=== PATIENT | female | born 1970 | race Hispanic/Latino ===

== ENCOUNTER 2018-08-10 13:17 | Emergency (ER) | payer OTHER ==
[2018-08-10 14:18] LABS: APPEARANCE,URINE Clear (CLEAR); BILIRUBIN,URINE Negative (NEGATIVE); COLOR,URINE Yellow (YELLOW); GLUCOSE, URINE (UA) Negative (NEGATIVE); KETONES,URINE Negative (NEGATIVE); LEUKOCYTE ESTERASE ,URINE Negative (NEGATIVE); NITRATE,URINE Negative (NEGATIVE); OCCULT BLOOD,URINE Negative (NEGATIVE); PH,URINE 6.5 (5.0-8.0); PROTEIN,URINE Negative (NEGATIVE); UROBILINOGEN,URINE 0.2 mg/dL (0.2-1.0)
[2018-08-10 14:21] LABS: BASOPHILS % (AUTO) 0.7 % (0.0-5.0); HEMATOCRIT 31.5 % (36-48); LYMPHOCYTES % (AUTO) 29.1 % (21.0-51.0); MEAN CORPUSCULAR HEMOGLOBIN 27.1 pg (27.0-33.0); MEAN CORPUSCULAR HGB CONC 33.4 g/dL (32.0-36.0); MEAN CORPUSCULAR VOLUME 81.1 fL (79-99); MONOCYTES % (AUTO) 8.8 % (3.0-13.0); NEUTROPHILS % (AUTO) 60.4 % (40.0-77.0); PLATELET COUNT (AUTO) 300 K/uL (130-400); RED BLOOD CELL COUNT(AUTO) 3.88 MIL/uL (4.00-5.50); RED CELL DISTRIBUTION WIDTH 17.6 % (11.0-15.5); WHITE BLOOD COUNT (AUTO) 7.4 K/uL (4.8-10.8)
[2018-08-10 14:30] LABS: CREATININE 0.6 mg/dL (0.5-1.5); POTASSIUM 3.8 mmol/L (3.5-5.1)
[2018-08-10 14:35] LABS: ALBUMIN 3.3 g/dL (3.5-5.0); BILIRUBIN,TOTAL 0.3 mg/dL (0.2-1.0); TOTAL PROTEIN, SERUM 7.2 g/dL (6.0-8.3)
[2018-08-10] MEDS ORDERED: DiphenhydrAMINE HCL 50 MG/ML VIAL ONE (15:10)
[2018-08-10] MEDS ORDERED: KETOROLAC TROMETHAMINE 30MG/ML ONE (15:10)
== END 2018-08-10 15:58 | disposition home or self-care (01) ==
LOC: EDH 13:17
DX: L29.9 Pruritus, unspecified (principal); R42 Dizziness and giddiness; M79.18 Myalgia, other site; M25.50 Pain in unspecified joint; Z72.0 Tobacco use
CPT/HCPCS: 36415; 80053; 81003; 84484; 85025; 93005; 96374; 96375; 99285; J1200; J1885

== ENCOUNTER 2021-01-16 17:42 | Emergency (ER) | payer SELFPAY ==
[2021-01-16] MEDS ORDERED: ACETAMINOPHEN-CODEINE 300/30MG TAB ONE (18:14)
== END 2021-01-16 18:51 | disposition home or self-care (01) ==
LOC: EDH 17:42
DX: J06.9 Acute upper respiratory infection, unspecified (principal); Z98.890 Other specified postprocedural states; Z72.0 Tobacco use
CPT/HCPCS: 71045

== ENCOUNTER 2021-02-24 12:08 | Emergency (ER) | payer SELFPAY ==
[2021-02-24] MEDS ORDERED: CEPHALEXIN 500 MG CAPSULE ONE (13:30)
[2021-02-24] MEDS ORDERED: ACETAMINOPHEN EXTRA STRENGTH 500 MG TABLET ONE (13:31)
[2021-02-24] MEDS ORDERED: TETANUS/DIPHTHERIA TOXOID [ADULT] 0.5 ML VIAL IM ONE (13:31)
== END 2021-02-24 14:22 | disposition home or self-care (01) ==
LOC: EDH 12:08
DX: S61.215A Laceration without foreign body of left ring finger without damage to nail, initial encounter (principal); Z98.890 Other specified postprocedural states; Z72.0 Tobacco use; W26.0XXA Contact with knife, initial encounter; Y93.G3 Activity, cooking and baking; Y92.090 Kitchen in other non-institutional residence as the place of occurrence of the external cause; Y99.8 Other external cause status
CPT/HCPCS: 73140; 90471; 90714

== ENCOUNTER 2022-05-03 10:03 | Emergency (ER) | payer OTHER ==
[~2022-05-03] VITALS: Ht 154.9 cm; Wt 81.6 kg
[2022-05-03] MEDS ORDERED: KETOROLAC 60 MG VIAL (30MG/ML) IM ONE (10:30)
[2022-05-03] MEDS ORDERED: NAPR500T6 PO (11:10)
[2022-05-03 11:33] VITALS: BP 133/78
== END 2022-05-03 11:57 | disposition home or self-care (01) ==
LOC: EDH 10:03
DX: M41.86 Other forms of scoliosis, lumbar region (principal)
CPT/HCPCS: 72100; 96372; 99283; J1885

== ENCOUNTER 2022-05-10 21:39 | Emergency (ER) | payer OTHER ==
[~2022-05-10] VITALS: Ht 157.5 cm; Wt 79.8 kg
[~2022-05-10 21:39] MED LIST: NAPR500T6 PO
[2022-05-10 23:16] LABS: BASOPHILS % (AUTO) 0.4 % (0.0-5.0); EOSINOPHILS % (AUTO) 2.4 % (0.0-8.0); HEMATOCRIT 37.3 % (36-48); LYMPHOCYTES % (AUTO) 20.3 % (21.0-51.0); MEAN CORPUSCULAR HEMOGLOBIN 31.9 pg (27.0-33.0); MEAN CORPUSCULAR HGB CONC 34.6 g/dL (32.0-36.0); MEAN CORPUSCULAR VOLUME 92.1 fL (79-99); MONOCYTES % (AUTO) 13.6 % (3.0-13.0); NEUTROPHILS % (AUTO) 62.9 % (40.0-77.0); PLATELET COUNT (AUTO) 205 K/uL (130-400); RED BLOOD CELL COUNT(AUTO) 4.05 MIL/uL (4.00-5.50); RED CELL DISTRIBUTION WIDTH 12.9 % (11.0-15.5); WHITE BLOOD COUNT (AUTO) 5.3 K/uL (4.8-10.8)
[2022-05-10 23:26] LABS: CREATININE 0.7 mg/dL (0.5-1.5); POTASSIUM 3.4 mmol/L (3.5-5.1)
[2022-05-10 23:31] LABS: ALBUMIN 3.6 g/dL (3.5-5.0); BILIRUBIN,TOTAL 0.4 mg/dL (0.2-1.0); TOTAL PROTEIN, SERUM 7.1 g/dL (6.0-8.3)
[2022-05-10] MEDS ORDERED: ONDANSETRON 4MG INJ ONE (23:38)
[2022-05-10] MEDS ORDERED: KETOROLAC 30MG VIAL (30MG/ML) ONE (23:38)
[2022-05-11] MEDS ORDERED: KETOROLAC 30MG VIAL (30MG/ML) IVP ONE
[2022-05-11] MEDS ORDERED: ONDANSETRON 4MG INJ IVP ONE
[2022-05-11] MEDS ORDERED: FIORIT PO (01:07)
[2022-05-11 01:29] VITALS: BP 118/76
== END 2022-05-11 01:31 | disposition home or self-care (01) ==
LOC: EDH 21:39
DX: G43.909 Migraine, unspecified, not intractable, without status migrainosus (principal)
CPT/HCPCS: 36415; 80053; 82150; 85025; 96374; 96375; 99284; J1885; J2405

== ENCOUNTER 2023-02-18 16:37 | Emergency (ER) | payer OTHER ==
[~2023-02-18] VITALS: Ht 160 cm; Wt 85.3 kg
[~2023-02-18 16:37] MED LIST changes: +FIORIT PO
[2023-02-18 17:45] VITALS: BP 112/45
== END 2023-02-18 19:55 | disposition left against medical advice (07) ==
LOC: EDH 16:37
DX: M79.672 Pain in left foot (principal); Z53.21 Procedure and treatment not carried out due to patient leaving prior to being seen by health care provider
CPT/HCPCS: 99281

== ENCOUNTER 2023-07-16 07:43 | Emergency (ER) | payer OTHER ==
[~2023-07-16] VITALS: Ht 160 cm; Wt 85.7 kg
[2023-07-16 07:45] VITALS: BP 123/78; PULSE 69; RESP 16
[2023-07-16] MEDS ORDERED: SOLU-MEDROL 125MG VIAL IM ONE (09:00)
[2023-07-16] MEDS ORDERED: KETOROLAC 60 MG VIAL (30MG/ML) IM ONE (09:00)
[2023-07-16] MEDS ORDERED: MELO-106 PO (10:03)
== END 2023-07-16 10:19 | disposition home or self-care (01) ==
LOC: EDH 07:43
DX: S89.81XA Other specified injuries of right lower leg, initial encounter (principal); Z79.899 Other long term (current) drug therapy; X58.XXXA Exposure to other specified factors, initial encounter; Y93.89 Activity, other specified; Y92.89 Other specified places as the place of occurrence of the external cause; Y99.8 Other external cause status
CPT/HCPCS: 99284; 29505; 73560; 96372 ×2; J2930; J1885

== ENCOUNTER 2023-10-03 15:56 | Emergency (ER) | payer OTHER ==
[~2023-10-03] VITALS: Ht 157.5 cm; Wt 82.6 kg
[~2023-10-03 15:56] MED LIST changes: +MELO-106 PO
[2023-10-03 17:07] LABS: RAPID GROUP A STREP negative (NEGATIVE)
[2023-10-03 17:11] LABS: SARS-CoV-2, RNA, NAAT NEGATIVE SARS CoV-2 (NEGATIVE)
[2023-10-03 17:19] LABS: INFLUENZA TYPE A Negative For Type A (NEGATIVE); INFLUENZA TYPE B Negative For Type B (NEGATIVE)
[2023-10-03 18:28] VITALS: BP 128/69; PULSE 70; RESP 16; O2SAT 99
[2023-10-03 19:02] LABS: APPEARANCE,URINE CLEAR (CLEAR); BILIRUBIN,URINE NEGATIVE (NEGATIVE); COLOR,URINE COLORLESS (YELLOW); GLUCOSE, URINE (UA) NEGATIVE (NEGATIVE); KETONES,URINE NEGATIVE (NEGATIVE); LEUKOCYTE ESTERASE ,URINE NEGATIVE Leu/uL (NEGATIVE); NITRATE,URINE NEGATIVE (NEGATIVE); OCCULT BLOOD,URINE NEGATIVE (NEGATIVE); PROTEIN,URINE NEGATIVE (NEGATIVE); UROBILINOGEN,URINE 0.2 mg/dL (0.2-1.0)
[2023-10-03 19:21] LABS: ADD UA MICROSCOPIC NO
== END 2023-10-03 20:04 | disposition left against medical advice (07) ==
LOC: EDH 15:56
DX: R50.9 Fever, unspecified (principal); M79.10 Myalgia, unspecified site; R11.2 Nausea with vomiting, unspecified; Z79.899 Other long term (current) drug therapy; Z98.890 Other specified postprocedural states
CPT/HCPCS: 99283; 87635; 87880; 87804 ×2; 81003; C9803

== ENCOUNTER 2024-02-29 13:25 | Emergency (ER) | payer OTHER ==
[~2024-02-29] VITALS: Ht 160 cm; Wt 84.4 kg
[2024-02-29 14:10] LABS: BILIRUBIN,URINE NEGATIVE (NEGATIVE); COLOR,URINE YELLOW (YELLOW); GLUCOSE, URINE (UA) NEGATIVE (NEGATIVE); KETONES,URINE NEGATIVE (NEGATIVE); LEUKOCYTE ESTERASE ,URINE 75 Leu/uL (NEGATIVE); NITRATE,URINE NEGATIVE (NEGATIVE); OCCULT BLOOD,URINE NEGATIVE (NEGATIVE); PH,URINE 7.5 (5.0-8.0); PROTEIN,URINE 20 mg/dL (NEGATIVE)
[2024-02-29 14:11] LABS: ADD UA MICROSCOPIC YES; APPEARANCE,URINE HAZY (CLEAR)
[2024-02-29 14:18] LABS: BASOPHILS # (AUTO) 0.03 K/uL (0.00-0.20); BASOPHILS % (AUTO) 0.5 % (0.0-5.0); EOSINOPHILS # (AUTO) 0.23 K/uL (0.00-0.70); EOSINOPHILS % (AUTO) 3.9 % (0.0-8.0); HEMATOCRIT 38.7 % (36-48); IMMATURE GRANULOCYTE ABSOLUTE 0.02 K/uL (0-1); LYMPHOCYTES # (AUTO) 2.3 K/uL (1.0-4.8); LYMPHOCYTES % (AUTO) 38.4 % (21.0-51.0); MEAN CORPUSCULAR HEMOGLOBIN 32.4 pg (27.0-33.0); MEAN CORPUSCULAR HGB CONC 34.6 g/dL (32.0-36.0); MEAN CORPUSCULAR VOLUME 93.5 fL (79-99); MONOCYTES # (AUTO) 0.5 K/uL (0.1-1.0); MONOCYTES % (AUTO) 7.8 % (3.0-13.0); NEUTROPHILS # (AUTO) 2.9 K/uL (1.8-7.7); NEUTROPHILS % (AUTO) 49.1 % (40.0-77.0); PLATELET COUNT (AUTO) 273 K/uL (130-400); RED BLOOD CELL COUNT(AUTO) 4.14 MIL/uL (4.00-5.50); RED CELL DISTRIBUTION WIDTH 13.4 % (11.0-15.5); WHITE BLOOD COUNT (AUTO) 5.9 K/uL (4.8-10.8)
[2024-02-29 14:25] LABS: BACTERIA,URINE FEW /HPF (None Seen); MUCUS,URINE RARE LPF (None Seen); SQUAMOUS EPITHELIAL CELL,UR MANY /HPF (0-2)
[2024-02-29 14:33] LABS: CREATININE 0.8 mg/dL (0.5-1.0); POTASSIUM 3.6 mmol/L (3.5-5.1)
[2024-02-29 14:38] LABS: ALBUMIN 3.4 g/dL (3.5-5.0); BILIRUBIN,TOTAL 0.5 mg/dL (0.2-1.0); TOTAL PROTEIN, SERUM 7.1 g/dL (6.0-8.3)
[2024-02-29] MEDS: 0.9%NACL 1000ML 1,000 ML IV ONE (15:35)
[2024-02-29] MEDS: KETOROLAC 30MG VIAL (30MG/ML) IVP ONE (15:35)
[2024-02-29] MEDS ORDERED: AMOX1TAB16 PO (16:29)
[2024-02-29] MEDS ORDERED: IBUP-2077 PO (16:29)
[2024-02-29 17:13] VITALS: BP 136/78; PULSE 75; RESP 18; O2SAT 98
== END 2024-02-29 17:14 | disposition home or self-care (01) ==
LOC: EDH 13:25
DX: N30.01 Acute cystitis with hematuria (principal); K59.00 Constipation, unspecified; Z79.899 Other long term (current) drug therapy; Z98.890 Other specified postprocedural states
CPT/HCPCS: 99285; 74176; 96374; 96361; 80053; 85025; 87088; 81001; 36415; J7030; J1885

== ENCOUNTER 2025-06-18 11:42 | Emergency (ER) | payer SELFPAY ==
[~2025-06-18] VITALS: Ht 157.5 cm; Wt 79.9 kg
[~2025-06-18 11:42] MED LIST changes: +AMOX1TAB16 PO; +IBUP-2077 PO; +NAPR-1506 PO; -NAPR500T6 PO
[2025-06-18 11:44] VITALS: TEMP 97.5
--- NOTE | 2025-06-18 11:54 | ERN ---
ED Note History of Present Illness Stated Complaint: RIGHT SHOULDER PAIN Chief Complaint: Shoulder Injury/Pain Time Seen by MD: 11:45 Dictation: PATIENT IS A 55-YEAR-OLD FEMALE COMING IN TODAY WITH POSTERIOR RIGHT SHOULDER PAIN, NON TRAUMA ONSET YESTERDAY. SHE STATES SHE WORKS FOR A LOCAL [employer], USES HER ARMS EXTENSIVELY. SHE DENIES ANY TRAUMA NO FALLS NO PRIOR SURGERIES TO SHOULDER. STATES WHEN SHE WOKE UP THIS MORNING IN HIS WORSE, NO PRIMARY CARE DOCTOR. DECREASED RANGE OF MOTION SECONDARY TO PAIN. SHE TOOK TYLENOL YESTERDAY WITH LITTLE HELP Allergies: Coded Allergies: No Known Drug Allergies (Unverified Allergy, Unknown, 05/03/22) Home Meds Active Scripts Ibuprofen (Ibuprofen 800 mg Tab) 800 Mg Tab, 800 MG PO Q6H PRN for PAIN, #30 TAB Prov:SONIA PEARSON NP 02/29/24 Amoxicillin/Potassium Clav (Amox Tr-K Clv 875-125 mg Tab) 875 Mg-125 Mg Tablet, 1 EACH PO BID for 7 Days, #14 TAB 0 Refills Prov:SONIA PEARSON NP 02/29/24 Meloxicam (Meloxicam) 7.5 Mg Tablet, 7.5 MG PO DAILY, #30 TAB 2 Refills Prov:FE MAJOR Sr., MD 07/16/23 Butalb/Acetaminophen/Caffeine (Fioricet) 1 Tab Tab, 1 TAB PO QID, #20 TAB Prov:RAYMOND KINNEY MD 05/11/22 Naproxen (Naproxen) 500 Mg Tablet.dr, 500 MG PO BID for 7 Days, #14 TAB Prov:KAMRAN BERMEO MD 05/03/22 Past Medical History Past Medical History: No Pertinent History Surgical History: Social History: Negative, Lives with family History: Not Applicable RN Note Reviewed/Agreed w/PFSH: Yes Review of System Dictation CONSTITUTIONAL: NEGATIVE EXCEPT FOR HPI HEAD/FACE: NEGATIVE EXCEPT FOR HPI EENT: NEGATIVE EXCEPT FOR HPI RESPIRATORY: NEGATIVE EXCEPT FOR HPI GASTROINTESTINAL/ABDOMINAL: NEGATIVE EXCEPT FOR HPI GENITOURINARY: NEGATIVE EXCEPT FOR HPI MUSCULOSKELETAL: NEGATIVE EXCEPT FOR HPI RIGHT POSTERIOR SHOULDER PAIN INTEGUMENTARY: NEGATIVE EXCEPT FOR HPI NEUROLOGICAL/PSYCH: NEGATIVE EXCEPT FOR HPI HEMATOLOGIC/LYMPHATIC: NEGATIVE EXCEPT FOR HPI ALL SYSTEMS NEGATIVE, EXCEPT NOTED ABOVE. 13 POINT REVIEW OF SYSTEMS ASSESSED AND ALL NEGATIVE EXCEPT FOR ABOVE. Initial Vital Sign VS Vital Signs Date Time Temp Pulse Resp B/P (MAP) Pulse Ox O2 Delivery O2 Flow Rate FiO2 06/18/25 11:44 97.5 65 19 130/90 98 Room Air 0 Physical Exam Dictation VITAL SIGNS REVIEWED GENERAL APPEARANCE: ALERT, ORIENTED X 3, MODERATE ACUTE DISTRESS, WELL DEVELOPED, NOURISHED. HEAD AND FACE: NON-TRAUMATIC. EYES: PERRL, PINK CONJUNCTIVAS, EYELID NO TRAUMA, ANTERIOR CHAMBER WITH ARCUS SENILIS. EARS: PINNAS INTACT AND NO SIGNS OF TRAUMA OR ERYTHEMA EAR CANALS CLEAR AND NO DISCHARGE TM NO ERYTHEMA NOSE: NO DISCHARGE, NO BLEEDING. OROPHARYNX: MOUTH NORMAL, TONGUE PINK, PHARYNX CLEAR,NO ERYTHEMA, TONSILS NO EXUDATES, NO ABSCESSES NOTED, MUCOUS MEMBRANE MOIST NECK: SUPPLE, NON-TENDER, NO THYROMEGALY, NO MASSES, NO JVD, NO BRUITS BREAST:DEFERRED CHEST:NO TENDERNESS, NO CREPITUS, NO PARADOXICAL MOVEMENT, NO RETRACTIONS LUNGS:CLEAR, WELL-VENTILATED, SYMMETRIC, NO RALES, NO WHEEZING, NO RHONCHI, NO STRIDOR, GOOD BREATH SOUNDS BILATERALLY HEART: REGULAR RATE, REGULAR RHYTHM, NO MURMUR, NO GALLOPS VASCULAR: NO PERIPHERAL EDEMA, ABDOMEN: SOFT, POSITIVE BOWEL SOUNDS, NONDISTENDED, NO GUARDING, NONTENDER, NO REBOUND, NO MASSES NO HEPATOMEGALY, NO SPLENOMEGALY, NO TOLEDO'S SIGN, NO HERNIAS. RECTAL: DEFERRED GENITAL: DEFERRED NEUROLOGICAL: NORMAL SPEECH, MOTOR FUNCTION INTACT, SENSORY FUNCTION INTACT MUSCULOSKELETAL: NECK NONTENDER, FULL RANGE OF MOTION, BACK NONTENDER, FULL RANGE OF MOTION, EXTREMITIES: TENDERNESS WITH DECREASED RANGE OF MOTION TO RIGHT POSTERIOR SHOULDER. PATIENT NEAR THE SCAPHOID PROCESS. SKIN INTACT NO LESIONS SKIN: COLOR PINK, DRY, NO TURGOR, NO RASH, NO LACERATIONS, NO ABRASIONS, NO CONTUSIONS. LYMPHATIC: DEFERRED Results (Laboratory/Radiology) Laboratory/Radiology RIGHT SHOULDER X-RAY NO FRACTURE DISLOCATION Labs Reviewed?: Yes ED Course ED Course Orders Procedure Category Date Status Time Shoulder Comp 2+Vws Rt RAD 06/18/25 Resulted 11:48 Ibuprofen 800 Mg Tab PHA 06/18/25 Complete (Motrin) 12:00 Dexamethasone 4mg/Ml PHA 06/18/25 Complete 1ml Vial (Dexametha 12:00 Current Medications Medications (Trade) Dose Ordered Sig/Lissette Route PRN Reason Start Time Stop Time Status Last Admin Dose Admin Dexamethasone Sodium Phosphate (dexaMETHasone 4MG/ML 1ML VIAL) 8 mg ONCE ONCE IM 06/18/25 12:00 06/18/25 12:01 DC Ibuprofen (moTRIN) 800 mg ONCE ONCE PO 06/18/25 12:00 06/18/25 12:01 DC Vital Signs Date Time Temp Pulse Resp B/P (MAP) Pulse Ox O2 Delivery O2 Flow Rate FiO2 06/18/25 11:44 97.5 65 19 130/90 98 Room Air 0 Medical Decision Making [facility] 1220/MEDICAL DECISION-MAKING BASED ON X-RAY OF RIGHT SHOULDER FOR NON TRAUMA PAIN PAIN MANAGED WITH TORADOL IM DISCHARGED HOME WITH IBUPROFEN AND FOLLOW UP WITH DR. BAILEY DX & DISP Disposition: Discharge Departure Impression: Primary Impression: Strain of right levator scapulae muscle Condition: Stable Scripts Ibuprofen (Ibuprofen 800 mg Tab) 800 Mg Tab 800 MG PO Q8H PRN for fever or pain, #30 TAB 0 Refills Prov: SONIA PEARSON NP 06/18/25 Cyclobenzaprine HCl (Cyclobenzaprine HCl) 10 Mg Tablet 1 TAB PO TID for muscle spasms for 10 Days, #30 TAB 0 Refills Prov: SONIA PEARSON TELEPHONE STATION REPAIRER 06/18/25 Additional Instructions: FOLLOW-UP WITH PRIMARY CARE PROVIDER IN 1 TO 2 DAYS. TAKE MEDICATIONS DIRECTED HERE IN THE EMERGENCY ROOM. OKAY TO CONTINUE HOME MEDICATIONS UNLESS OTHERWISE DISCUSSED DURING YOUR VISIT IN THE EMERGENCY ROOM TODAY. RETURN TO YOUR NEAREST EMERGENCY ROOM IF SYMPTOMS WORSEN OR IF THERE IS NO IMPROVEMENT. CALL 911 IF YOU NEED IMMEDIATE ASSISTANCE. TAKE TYLENOL OR MOTRIN [id number] NEEDED AND IF NO CONTRAINDICATIONS ARE PRESENT. INCREASE ORAL HYDRATION. A WOUND CULTURE OR URINE CULTURE WAS ORDERED HERE IN THE EMERGENCY ROOM DEPARTMENT PLEASE FOLLOW-UP WITH PRIMARY CARE PROVIDER AND ADVISE THEM TO GET REPEAT PORTS FROM OUR FACILITY. IF YOU HAD ANY KITTY WRAP/SPLINTS THAT WERE APPLIED HERE, PLEASE DO NOT REMOVE THEM UNTIL YOU SEE YOUR PRIMARY CARE OR SPECIALTY. TAKE IBUPROFEN AND FLEXERIL EVERY 8 HOURS WITH FOOD FOR THE NEXT THREE DAYS. WARM COMPRESSES TO RIGHT SHOULDER THREE TO 4 TIMES A DAY FOR PAIN. FOLLOW UP WITH THE ORTHOPEDIC SURGEON IN THE NEXT SEVERAL DAYS, CALL FOR AN APPOINTMENT. Referrals: SELF,REFERRAL (PCP) ANTHONY LÓPEZ MD Time of Disposition: 12:24 I have reviewed the case, and I agree with, Diagnosis and Plan SONIA PEARSON NP Jun 18, 2025 11:53
--- NOTE | 2025-06-18 12:12 | HMCIMG ---
SHOULDER COMP 2+VWS RT REASON: NON TRAUMA RIGHT POSTERIOR SHOULDER PAIN ONSET YESTERDAY TECHNIQUE: 3 views were obtained. FINDINGS: There is no evidence of fracture or dislocation. There is no joint effusion. The soft tissues appear unremarkable. There is no evidence of a radiopaque foreign body. IMPRESSION: No acute findings. No acute fracture or dislocation
[2025-06-18 12:20] VITALS: BP 116/73; PULSE 88; RESP 16; O2SAT 97
[2025-06-18] MEDS ORDERED: IBUP-2077 PO (12:24)
[2025-06-18] MEDS ORDERED: CYCL-309 PO (12:24)
== END 2025-06-18 13:01 ==
LOC: EDH 11:42
DX: S46.911A Strain of unspecified muscle, fascia and tendon at shoulder and upper arm level, right arm, initial encounter (principal); Z79.1 Long term (current) use of non-steroidal anti-inflammatories (NSAID); Z79.899 Other long term (current) drug therapy; X58.XXXA Exposure to other specified factors, initial encounter; Y93.89 Activity, other specified; Y92.89 Other specified places as the place of occurrence of the external cause; Y99.8 Other external cause status
CPT/HCPCS: 99283; 73030; 96372; J1100